=== PATIENT | female | born 1990 | race American Indian/Alaskan Native ===

== ENCOUNTER 2017-04-11 07:53 | Emergency (ER) | payer OTHER ==
[2017-04-11] MEDS ORDERED: NACL 0.9% 1000 ML 1,000 ML IV ONE (08:21)
[2017-04-11] MEDS ORDERED: KEPPRA 1,000 MG/NS 0.75% 100ML 1,000 MG/100 ML BAG IV ONE (08:25)
[2017-04-11 08:57] LABS: Basophils % (Auto) 0.2 % (0.0-1.8); Eosinophils % (Auto) 0.1 % (0.0-4.3); Hematocrit 37.9 % (30.3-42.9); Hemoglobin 12.3 gm/dl (10.1-14.3); Mean Corpuscular HGB Conc 32 % (30-34); Mean Corpuscular Hemoglobin 29 pg (28-32); Mean Corpuscular Volume 91 fl (79-97); Platelet Count 219 K/mm3 (140-440); Red Blood Count 4.19 M/mm3 (3.65-5.03); Red Cell Distribution Width 12.1 % (13.2-15.2); White Blood Count 18.7 K/mm3 (4.5-11.0)
[2017-04-11 09:09] LABS: Alanine Aminotransferase 16 units/L (7-56); Albumin 3.8 g/dL (3.9-5); Alkaline Phosphatase 63 units/L (35-129); Anion Gap 22 mmol/L; BUN/Creatinine Ratio 19; Bilirubin,Total < 0.20 mg/dL (0.1-1.2); Blood Urea Nitrogen 15 mg/dL (7-17); Calcium 8.5 mg/dL (8.4-10.2); Carbon Dioxide 17 mmol/L (22-30); Chloride 104.9 mmol/L (98-107); Glucose 95 mg/dL (65-100); Potassium 4.5 mmol/L (3.6-5.0); Sodium 139 mmol/L (137-145); Total Protein 7.7 g/dL (6.3-8.2)
[2017-04-11 09:10] LABS: Bilirubin,Direct < 0.2 mg/dL (0-0.2)
--- NOTE | 2017-04-11 10:08 | Emergency Department Report ---
ED General Adult HPI - General Chief complaint: Seizure Stated complaint: SEIZURES Time Seen by Provider: 04/11/17 08:19 Source: patient Mode of arrival: Stretcher Limitations: Altered Mental Status - History of Present Illness Initial comments: The patient is transported via EMS for recurrent seizures. On arrival she is still postictal but she states to me that she has had seizures before. She cannot identify taking any medication. Whether it was previously prescribed are not I am not certain. However, the patient is not taking any current seizure medicine. She is not providing me with much information on her arrival. EMS reported a glucose within acceptable range, reasonable vital signs and no other complicating problem or injury. -: Sudden, hour(s) (over the last few hours) Location: head (apparently the patient mentioned some sort of headache to the nurse but did not complain of any pain to me) Improves with: none Worsens with: none Associated Symptoms: denies other symptoms - Related Data Previous Rx's Medication Instructions Recorded Last Taken Type levETIRAcetam [Keppra] 500 mg PO BID #60 tablet 04/11/17 Unknown Rx Allergies Allergy/AdvReac Type Severity Reaction Status Date / Time No Known Allergies Allergy Unverified 04/11/17 09:11 ED Review of Systems ROS: Stated complaint: SEIZURES Other details as noted in HPI Comment: Unobtainable due to pts medical conditions ED Past Medical Hx - Past Medical History Previous Medical History?: Yes Hx Seizures: Yes - Surgical History Past Surgical History?: No - Social History Smoking Status: Unknown if ever smoked Substance Use Type: None - Medications Home Medications: Home Medications Medication Instructions Recorded Confirmed Last Taken Type levETIRAcetam [Keppra] 500 mg PO BID #60 tablet 04/11/17 Unknown Rx ED Physical Exam - General Limitations: Altered Mental Status (post ictus) General appearance: alert, in no apparent distress - Head Head exam: Present: atraumatic, normocephalic - Eye Eye exam: Present: normal appearance, PERRL, EOMI. Absent: scleral icterus - ENT ENT exam: Present: mucous membranes moist - Neck Neck exam: Present: normal inspection. Absent: tenderness, meningismus - Respiratory Respiratory exam: Present: normal lung sounds bilaterally. Absent: respiratory distress - Cardiovascular Cardiovascular Exam: Present: regular rate, normal rhythm. Absent: systolic murmur, diastolic murmur, rubs, gallop - GI/Abdominal GI/Abdominal exam: Present: soft, normal bowel sounds. Absent: distended, tenderness, guarding, rebound, rigid - Extremities Exam Extremities exam: Present: normal inspection - Back Exam Back exam: Present: normal inspection - Neurological Exam Neurological exam: Present: altered, other (poor cooperation but no focal deficit noted) - Psychiatric Psychiatric exam: Present: normal mood, flat affect - Skin Skin exam: Present: warm, dry, intact, normal color. Absent: rash ED Course Vital Signs 04/11/17 04/11/17 04/11/17 08:44 09:22 11:20 Temperature 98.7 F Pulse Rate 107 H 105 H 92 H Respiratory 18 16 16 Rate Blood Pressure 99/56 Blood Pressure 92/47 100/60 [Right] O2 Sat by Pulse 99 94 97 Oximetry 04/11/17 04/11/17 11:33 12:33 Temperature Pulse Rate 93 H Respiratory 16 16 Rate Blood Pressure Blood Pressure 100/60 [Right] O2 Sat by Pulse 93 96 Oximetry - Reevaluation(s) Reevaluation #1: Given. Patient being observed. Additional workup is pending. 04/11/17 10:07 Reevaluation #2: The patient is no longer postictal. She has no complaints. She was sleeping at the time of my reexamination. She admitted that she was not compliant with her Keppra. We discussed this. She says that she actually does have Keppra at home. That was standing out give her another prescription. I have encouraged compliance. 04/11/17 13:08 ED Medical Decision Making - Lab Data Result diagrams: 04/11/17 08:31 04/11/17 08:31 Laboratory Results - last 24 hr 04/11/17 04/11/17 04/11/17 08:31 08:31 08:31 WBC 18.7 H RBC 4.19 Hgb 12.3 Hct 37.9 MCV 91 MCH 29 MCHC 32 RDW 12.1 L Plt Count 219 Lymph % (Auto) 5.7 L [place] % (Auto) 4.0 Eos % (Auto) 0.1 Baso % (Auto) 0.2 Lymph # 1.1 L [place] # 0.7 Eos # 0.0 Baso # 0.0 Seg Neutrophils % 90.0 H Seg Neutrophils # 16.8 H Sodium 139 Potassium 4.5 Chloride 104.9 Carbon Dioxide 17 L Anion Gap 22 BUN 15 Creatinine 0.8 Estimated GFR > 60 BUN/Creatinine Ratio 19 Glucose 95 Calcium 8.5 Magnesium Total Bilirubin < 0.20 Direct Bilirubin < 0.2 Indirect Bilirubin 0.0 AST 18 ALT 16 Alkaline Phosphatase 63 Total Protein 7.7 Albumin 3.8 L Albumin/Globulin Ratio 1.0 Urine Color Urine Turbidity Urine pH Ur Specific [place] Urine Protein Urine Glucose (UA) Urine Ketones Urine Blood Urine Nitrite Urine Bilirubin Urine Urobilinogen Ur Leukocyte Esterase Urine WBC (Auto) Urine RBC (Auto) U Epithel Cells (Auto) Urine Mucus Urine HCG, Qual Plasma/Serum Alcohol < 0.01 04/11/17 04/11/17 08:31 09:50 WBC RBC Hgb Hct MCV MCH MCHC RDW Plt Count Lymph % (Auto) [place] % (Auto) Eos % (Auto) Baso % (Auto) Lymph # [place] # Eos # Baso # Seg Neutrophils % Seg Neutrophils # Sodium Potassium Chloride Carbon Dioxide Anion Gap BUN Creatinine Estimated GFR BUN/Creatinine Ratio Glucose Calcium Magnesium 2.00 Total Bilirubin Direct Bilirubin Indirect Bilirubin AST ALT Alkaline Phosphatase Total Protein Albumin Albumin/Globulin Ratio Urine Color Yellow Urine Turbidity Clear Urine pH 5.0 Ur Specific [place] 1.015 Urine Protein 30 mg/dl Urine Glucose (UA) Neg Urine Ketones Neg Urine Blood Mod Urine Nitrite Neg Urine Bilirubin Neg Urine Urobilinogen < 2.0 Ur Leukocyte Esterase Neg Urine WBC (Auto) 2.0 Urine RBC (Auto) 4.0 U Epithel Cells (Auto) 2.0 Urine Mucus Few Urine HCG, Qual Negative Plasma/Serum Alcohol Critical care attestation.: If time is entered above; I have spent that time in minutes in the direct care of this critically ill patient, excluding procedure time. ED Disposition Clinical Impression: Generalized seizure, Seizure disorder Disposition: DC-01 TO HOME OR SELFCARE Is pt being admited?: No Does the pt Need Aspirin: No Condition: Stable Instructions: Recurrent Seizures Adult (ED) Additional Instructions: Do not drive or operate machinery until cleared by a neurologist. It is essential that you do take your medication. Prescriptions: levETIRAcetam [Keppra] 500 mg PO BID #60 tablet Referrals: PRIMARY CARE, [Primary Care Provider] - 3-[address] [facility] [Provider Group] - 3-5 Days Time of Disposition: 13:10
[2017-04-11 10:24] LABS: Urine Drugs of Abuse Note Disclamer
[2017-04-11 10:32] LABS: Bilirubin,Urine NEG (Negative); Blood,Urine MOD (Negative); Ketones,Urine NEG (Negative); Leukocyte Esterase,Urine NEG (Negative); Mucus,Urine FEW /HPF; Nitrite,Urine NEG (Negative); Urobilinogen,Urine < 2.0 mg/dL (<2.0)
--- NOTE | 2017-04-11 13:14 | Cat Scan Report ---
CT HEAD WITHOUT CONTRAST: 04/11/17 07:53:00 CLINICAL: Seizure. TECHNIQUE: 2.5-mm noncontrast scans. COMPARISON:None FINDINGS: The ventricles and sulci are normal for age. No abnormal density. No mass or mass effect. No hemorrhage, edema or extra-axial collection. The sinuses are clear. Normal orbits and soft tissues. The calvarium and skull base are intact. IMPRESSION: Normal study.
[2017-04-11 14:05] VITALS: BP 108/49
== END 2017-04-11 14:03 | disposition home or self-care (01) ==
LOC: ED 07:53
DX: G40.909 Epilepsy, unspecified, not intractable, without status epilepticus (principal); Z79.899 Other long term (current) drug therapy
CPT/HCPCS: 36415; 70450; 80048; 80074; 80307; 81001; 81025; 83735; 85025; 96361; 96374; 99284; G0480; J1953; J7030; 80320